=== PATIENT | female | born 1985 | race Caucasian/White ===

== ENCOUNTER 2018-01-21 11:32 | Emergency (ER) | payer MEDICAID, OTHER ==
--- NOTE | 2018-01-21 11:55 | ER Document Report ---
ED Medical Screen (RME) - General Chief Complaint: OB Problem (<20wks) Stated Complaint: ABDOMINAL PAIN,VAGINAL BLEEDING Time Seen by Provider: 01/21/18 11:52 Notes: RAPID MEDICAL EVALUATION DISCLOSURE I have seen this patient as part of a Rapid Medical Evaluation and, if applicable, placed any initially appropriate orders. The patient will be seen and fully evaluated, including a full history and physical exam, by a provider ( in Main ED or Fast Track) when a room becomes available. 32-year-old female here with complaints of right and left pelvic pain ongoing for the past 3 days. Yesterday she started to have some vaginal bleeding described as spotting. She has not had any dysuria hematuria fevers chills. [facility] and had an ultrasound several weeks ago that she reports is normal. TRAVEL OUTSIDE OF THE [place] IN LAST 30 DAYS: No - Related Data Allergies/Adverse Reactions: No Known Allergies Allergy (Verified 01/21/18 11:33) Past Medical History Renal/ Medical History: Reports: Hx Kidney Stones - Immunizations Hx Diphtheria, Pertussis, Tetanus Vaccination: Yes Physical Exam - Vital signs Vitals: Temp Pulse Resp BP Pulse Ox 99.0 F 79 15 123/70 100 01/21/18 11:35 01/21/18 11:35 01/21/18 11:35 01/21/18 11:35 01/21/18 11:35 Course - Vital Signs Vital signs: Temp Pulse Resp BP Pulse Ox 99.0 F 79 15 123/70 100 01/21/18 11:35 01/21/18 11:35 01/21/18 11:35 01/21/18 11:35 01/21/18 11:35 Doctor's Discharge - Discharge Referrals: MEGHAN LOPEZ MD [Primary Care Provider] - Follow up as needed
[2018-01-21 12:39] LABS: AMORPHOUS SEDIMENT,URINE 1+ /HPF; APPEARANCE,URINE TURBID; BILIRUBIN,URINE NEGATIVE (NEGATIVE); COLOR,URINE YELLOW; GLUCOSE, URINE NEGATIVE (NEGATIVE); KETONES,URINE NEGATIVE (NEGATIVE); LEUKOCYTE ESTERASE,URINE TRACE (NEGATIVE); NITRITE,URINE NEGATIVE (NEGATIVE); PROTEIN,URINE NEGATIVE (NEGATIVE); URINE SPECIFIC GRAVITY 1.018
--- NOTE | 2018-01-21 13:50 | ER Document Report ---
ED GI/ - General Chief Complaint: OB Problem (<20wks) Stated Complaint: ABDOMINAL PAIN,VAGINAL BLEEDING Time Seen by Provider: 01/21/18 11:52 Mode of Arrival: Ambulatory Information source: Patient Notes: Chief complaint: Vaginal spotting History of complain:( obtained from----patient) 32 years old female, fourth , 3 live , nearly 9 weeks , presents with vaginal spotting and occasional bleeding since yesterday. Since this she has been having almost continuous cramp which is not new for her. Denies any dizziness denies any nausea vomiting. Onset: As above Duration: Last 24 hours Severity: Mild Quality: Mild Context: Exacerbating factor and relieving factors: Not applicable REVIEW OF SYSTEMS: CONSTITUTIONAL : Denies fever, chills, or sweats. Denies recent illness. EENT: Denies eye, ear, throat, or mouth pain or symptoms. Denies nasal or sinus congestion or discharge. Denies throat, tongue, or mouth swelling or difficulty swallowing. CARDIOVASCULAR: Denies chest pain. Denies palpitations or racing or irregular heart beat. Denies ankle edema. RESPIRATORY: Denies cough, cold, or chest congestion. Denies shortness of breath, difficulty breathing, or wheezing. GASTROINTESTINAL: Denies distention. Denies nausea, vomiting, or diarrhea. Denies blood in vomitus, stools, or per rectum. Denies black, tarry stools. Denies constipation. GENITOURINARY: Denies difficulty urinating, painful urination, burning, frequency, blood in urine, or discharge. FEMALE GENITOURINARY: Denies vaginal bleeding, heavy or abnormal periods, irregular periods. Denies vaginal discharge or odor. MUSCULOSKELETAL: Denies back or neck pain or stiffness. Denies joint pain or swelling. SKIN: Denies rash, lesions or sores. HEMATOLOGIC : Denies easy bruising or bleeding. LYMPHATIC: Denies swollen, enlarged glands. NEUROLOGICAL: Denies confusion or altered mental status. Denies passing out or loss of consciousness. Denies dizziness or lightheadedness. Denies headache. Denies weakness or paralysis or loss of use of either side. Denies problems with gait or speech. Denies sensory loss, numbness, or tingling. Denies seizures. PSYCHIATRIC: Denies anxiety or stress. Denies depression, suicidal ideation, or homicidal ideation. ALL OTHER SYSTEMS REVIEWED AND NEGATIVE. PHYSICAL EXAMINATION: GENERAL: Well-appearing, well-nourished and in no acute distress. HEAD: Atraumatic, normocephalic. EYES: Pupils equal round and reactive to light, extraocular movements intact, conjunctiva are normal. ENT: Nares patent, oropharynx clear without exudates. Moist mucous membranes. NECK: Normal range of motion, supple without lymphadenopathy LUNGS: Breath sounds clear to auscultation bilaterally and equal. No wheezes rales or rhonchi. HEART: Regular rate and rhythm without murmurs ABDOMEN: Soft, nontender, nondistended abdomen. No guarding, no rebound. No masses appreciated. Examination of genitals-deferred Musculoskeletal: Normal range of motion, no pitting or edema. No cyanosis. NEUROLOGICAL: Cranial nerves grossly intact. Normal speech, normal gait. Normal sensory, motor exams PSYCH: Normal mood, normal affect. SKIN: Warm, Dry, normal turgor, no rashes or lesions noted. Dictation was performed using [employer] voice recognition software TRAVEL OUTSIDE OF THE [place] IN LAST 30 DAYS: No - HPI Severity at maximum: Moderate Pain Level: 2 Notes: 01/21/18 13:50 Dictated - Related Data Allergies/Adverse Reactions: No Known Allergies Allergy (Verified 01/21/18 11:33) Past Medical History - General Information source: Patient - Social History Smoking Status: Never Smoker Chew tobacco use (# tins/day): No Frequency of alcohol use: None Drug Abuse: None Family History: Reviewed & Not Pertinent Patient has suicidal ideation: No Patient has homicidal ideation: No Renal/ Medical History: Reports: Hx Kidney Stones. Denies: Hx Peritoneal Dialysis - Immunizations Hx Diphtheria, Pertussis, Tetanus Vaccination: Yes Review of Systems - Review of Systems Notes: Dictated Physical Exam - Vital signs Vitals: Temp Pulse Resp BP Pulse Ox 99.0 F 79 15 123/70 100 01/21/18 11:35 01/21/18 11:35 01/21/18 11:35 01/21/18 11:35 01/21/18 11:35 - Notes Notes: Dictated Course - Re-evaluation Re-evalutation: 01/21/18 17:23 Program was ordered and given - Vital Signs Vital signs: Temp Pulse Resp BP Pulse Ox 99.0 F 79 15 123/70 100 01/21/18 11:35 01/21/18 11:35 01/21/18 11:35 01/21/18 11:35 01/21/18 11:35 - Laboratory Result Diagrams: 01/21/18 12:05 Laboratory results interpreted by me: 01/21/18 01/21/18 01/21/18 12:05 12:05 12:05 Serum HCG, Qual POSITIVE H Beta HCG, Quant 44284.00 H Urine Blood MODERATE H Urine Urobilinogen 2.0 H Ur Leukocyte Esterase TRACE H - Diagnostic Test Radiology reviewed: Reports reviewed - Reported by radiologist as a live intrauterine of 7 weeks and 2 days Discharge - Discharge Clinical Impression: Threatened in early Qualifiers: Weeks of gestation: less than 8 weeks Qualified Code(s): Z3A.01 - Less than 8 weeks gestation of Condition: Fair Disposition: HOME, SELF-CARE Instructions: Bleeding During Early ([facility]), 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
[2018-01-21 14:01] LABS: ABSOLUTE EOSINOPHILS # (AUTO) 0.2 10^3/uL (0.0-0.6); ABSOLUTE LYMPHOCYTES (AUTO) 1.5 10^3/uL (0.5-4.7); ABSOLUTE MONOCYTES (AUTO) 0.5 10^3/uL (0.1-1.4); ABSOLUTE NEUT (AUTO) 3.1 10^3/uL (1.7-8.2); BASOPHILS % (AUTO) 0.6 % (0-2); EOSINOPHILS % (AUTO) 3.5 % (0-6); HEMOGLOBIN 12.8 g/dL (12.0-15.5); LYMPHOCYTES % (AUTO) 29.1 % (13-45); MEAN CORPUSCULAR HEMOGLOBIN 30.9 pg (27.0-33.4); MEAN CORPUSCULAR HGB CONC 33.7 g/dL (32.0-36.0); MEAN CORPUSCULAR VOLUME 92 fl (80-97); MONOCYTES % (AUTO) 9.1 % (3-13); PLATELET COUNT 181 10^3/uL (150-450); RED BLOOD COUNT 4.15 10^6/uL (3.72-5.28); SEGMENTED NEUTROPHILS % (AUTO) 57.7 % (42-78); TOTAL CELLS COUNTED % (AUTO) 100 %; WHITE BLOOD COUNT 5.3 10^3/uL (4.0-10.5)
--- NOTE | 2018-01-21 14:58 | RADIOLOGY REPORT (SQ) ---
EXAM DESCRIPTION: U/S OB TRANSVAGINAL W/O DOP COMPLETED DATE/TIME: 01/21/2018 2:12 pm REASON FOR STUDY: L pelvic pain, vag spotting COMPARISON: None. TECHNIQUE: Transvaginal static and realtime grayscale images acquired of the pelvis. Additional bradford cted spectral and color Doppler images recorded. All images stored on PACs. bHCG: Not available CLINICAL DATES: 9 weeks LIMITATIONS: None. FINDINGS: FETUS: Living intrauterine . ULTRASOUND EGA: 7 weeks 2 days ULTRASOUND BETZAIDA: 09/07/2018 CRL: 11 mm FHR: 150 beats per minute. SUBCHORIONIC BLEED: Yes SIZE OF BLEED: Measures 6.5 x 14.4 x 6.4 mm UTERUS: No masses. No anomalies. CERVICAL LENGTH: 2.2 cm Closed. RIGHT ADNEXA: Normal ovary with normal vascular flow. No adnexal free fluid. Complex appearing cyst is identified measuring 1.7 x 1.8 x 1.3 cm in diameters most consistent with a corpus lutein cyst. LEFT ADNEXA: Normal ovary with normal vascular flow. No adnexal free fluid. No adnexal masses. FREE FLUID: None. OTHER: No other significant finding. IMPRESSION: LIVING INTRAUTERINE . EGA 7 weeks 2 days Trimester of : First - 0 to 13 weeks. TECHNICAL DOCUMENTATION: JOB ID: [id number] [employer]- All Rights Reserved rev-12/13 Reading location - IP/workstation name: [email or web address]
[2018-01-21 17:33] VITALS: BP 113/79
== END 2018-01-21 17:38 | disposition home or self-care (01) ==
LOC: ER 11:32
DX: O20.0 Threatened abortion (principal); Z3A.01 Less than 8 weeks gestation of pregnancy; Z87.442 Personal history of urinary calculi
CPT/HCPCS: 99284; 96372; 86900; 86901; 36415; 86850; 84702; 84703; 85025; 81001; 76817; J2790

== ENCOUNTER 2018-01-23 17:34 | Emergency (ER) | payer SELFPAY ==
--- NOTE | 2018-01-23 18:21 | ER Document Report ---
ED Medical Screen (RME) - General Chief Complaint: Vag Bleeding, +preg <12wks Stated Complaint: VAGINAL BLEEDING Time Seen by Provider: 01/23/18 18:14 Notes: RAPID MEDICAL EVALUATION DISCLOSURE I have seen this patient as part of a Rapid Medical Evaluation and, if applicable, placed any initially appropriate orders. The patient will be seen and fully evaluated, including a full history and physical exam, by a provider ( in Main ED or Fast Track) when a room becomes available. 32-year-old female approximately 7 weeks gestation seen several days ago for abdominal cramping and vaginal bleeding with ultrasound findings of 7 weeks 2 days and 150 bpm back today because of bright red bleeding and abdominal cramping. She states that the bleeding today is bright red instead of the different color of bleeding the other day. Per chart review ultrasound showed intrauterine and she was Rh- so she did receive RhoGam per the providers note. EXAM Minimal suprapubic TTP Alert oriented conversant TRAVEL OUTSIDE OF THE [place] IN LAST 30 DAYS: No - Related Data Allergies/Adverse Reactions: No Known Allergies Allergy (Verified 01/23/18 17:35) Past Medical History Renal/ Medical History: Reports: Hx Kidney Stones. Denies: Hx Peritoneal Dialysis - Immunizations Hx Diphtheria, Pertussis, Tetanus Vaccination: Yes Physical Exam - Vital signs Vitals: Temp Pulse Resp BP Pulse Ox 98.8 F 93 18 131/77 H 99 01/23/18 17:39 01/23/18 17:39 01/23/18 17:39 01/23/18 17:39 01/23/18 17:39 Course - Vital Signs Vital signs: Temp Pulse Resp BP Pulse Ox 98.8 F 93 18 131/77 H 99 01/23/18 17:39 01/23/18 17:39 01/23/18 17:39 01/23/18 17:39 01/23/18 17:39 Doctor's Discharge - Discharge Referrals: MEGHAN LOPEZ MD [Primary Care Provider] - Follow up as needed
[2018-01-23 19:08] LABS: ABSOLUTE EOSINOPHILS # (AUTO) 0.2 10^3/uL (0.0-0.6); ABSOLUTE LYMPHOCYTES (AUTO) 1.8 10^3/uL (0.5-4.7); ABSOLUTE MONOCYTES (AUTO) 0.5 10^3/uL (0.1-1.4); ABSOLUTE NEUT (AUTO) 4.2 10^3/uL (1.7-8.2); BASOPHILS % (AUTO) 0.5 % (0-2); EOSINOPHILS % (AUTO) 3.3 % (0-6); HEMATOCRIT 38.6 % (36.0-47.0); HEMOGLOBIN 13.3 g/dL (12.0-15.5); LYMPHOCYTES % (AUTO) 26.4 % (13-45); MEAN CORPUSCULAR HEMOGLOBIN 31.2 pg (27.0-33.4); MEAN CORPUSCULAR HGB CONC 34.5 g/dL (32.0-36.0); MEAN CORPUSCULAR VOLUME 91 fl (80-97); MONOCYTES % (AUTO) 7.8 % (3-13); PLATELET COUNT 199 10^3/uL (150-450); RED BLOOD COUNT 4.25 10^6/uL (3.72-5.28); RED CELL DISTRIBUTION WIDTH 12.9 % (11.5-14.0); TOTAL CELLS COUNTED % (AUTO) 100 %; WHITE BLOOD COUNT 6.8 10^3/uL (4.0-10.5)
[2018-01-23 19:37] LABS: ANION GAP 13 (5-19); BLOOD UREA NITROGEN 10 mg/dL (7-20); CALCIUM 9.5 mg/dL (8.4-10.2); CARBON DIOXIDE 26 mmol/L (22-30); CHLORIDE 103 mmol/L (98-107); GLUCOSE 91 mg/dL (75-110); POTASSIUM 4.3 mmol/L (3.6-5.0)
--- NOTE | 2018-01-23 19:43 | ER Document Report ---
HPI - HPI Patient complains to provider of: Vaginal bleeding Onset: Other - 3 days Onset/Duration: Worse Quality of pain: Cramping Pain Level: 3 Context: Patient presents complaining of vaginal bleeding for the past 3 days that worsened today. Patient complains of some mild cramping. Patient does report some mild headache pain. Patient is and approximately 7 weeks . Patient was evaluated here 2 days ago for this issue. Associated Symptoms: Headache, Other - Vaginal bleeding. denies: Nausea, Vomiting Exacerbated by: Denies Relieved by: Denies Similar symptoms previously: No Recently seen / treated by doctor: Yes - ROS ROS below otherwise negative: Yes Systems Reviewed and Negative: Yes All other systems reviewed and negative - CONSTITUTIONAL Constitutional: DENIES: Fever - NEURO Neurology: REPORTS: Headache. DENIES: Weakness - RESPIRATORY Respiratory: DENIES: Trouble Breathing, Coughing - GASTROINTESTINAL Gastrointestinal: REPORTS: Abdominal Pain. DENIES: Nausea, Patient vomiting - REPRODUCTIVE Reproductive: REPORTS: :, Abnormal bleeding / discharge - MUSCULOSKELETAL Musculoskeletal: DENIES: Back Pain - DERM Skin Color: Normal, [place] Past Medical History - General Information source: Patient - Social History Smoking Status: Never Smoker Frequency of alcohol use: None Drug Abuse: None Lives with: Family Family History: Reviewed & Not Pertinent Patient has suicidal ideation: No Patient has homicidal ideation: No Renal/ Medical History: Reports: Hx Kidney Stones. Denies: Hx Peritoneal Dialysis Surgical Hx: Negative - Immunizations Hx Diphtheria, Pertussis, Tetanus Vaccination: Yes Vertical Provider Document - CONSTITUTIONAL Agree With Documented VS: Yes Exam Limitations: No Limitations General Appearance: WD/WN, No Apparent Distress - INFECTION CONTROL TRAVEL OUTSIDE OF THE [place] IN LAST 30 DAYS: No - HEENT HEENT: Atraumatic, Normocephalic - NECK Neck: Normal Inspection, Supple - RESPIRATORY Respiratory: Breath Sounds Normal, No Respiratory Distress - CARDIOVASCULAR Cardiovascular: Regular Rate, Regular Rhythm - GI/ABDOMEN Gastrointestinal: Abdomen Soft, Abdomen Non-Tender - REPRODUCTIVE Female Genitalia: Abnormal Inspection - Small amount of vaginal bleeding, cervix closed. negative: CMT, Adnexal Pain-Right, Adnexal Pain-Left - BACK Back: Normal Inspection - MUSCULOSKELETAL/EXTREMETIES Musculoskeletal/Extremeties: MAEW - NEURO Level of Consciousness: Awake, Alert, Appropriate Motor/Sensory: No Motor Deficit - DERM Integumentary: Warm, Dry, No Rash Course - Re-evaluation Re-evalutation: 01/23/18 20:35 Patient with only minimal vaginal bleeding on exam she does have a documented subchorionic bleed. Patient was not told about this finding yesterday. Patient did receive a RhoGam injection yesterday. Cervix is closed, patient with a stable H&H and vital signs. Patient encouraged to follow-up with an OB/ [employer] provider, calling tomorrow for an appointment. - Vital Signs Vital signs: Temp Pulse Resp BP Pulse Ox 98.8 F 93 18 131/77 H 99 01/23/18 17:39 01/23/18 17:39 01/23/18 17:39 01/23/18 17:39 01/23/18 17:39 - Laboratory Result Diagrams: 01/23/18 18:35 01/23/18 18:35 Laboratory results interpreted by me: 01/23/18 20:08 Reviewed lab tests from previous ER visit Labs- Entire Visit 01/23/18 01/23/18 18:35 18:35 WBC 6.8 RBC 4.25 Hgb 13.3 Hct 38.6 MCV 91 MCH 31.2 MCHC 34.5 RDW 12.9 Plt Count 199 Seg Neutrophils % 62.0 Lymphocytes % 26.4 Monocytes % 7.8 Eosinophils % 3.3 Basophils % 0.5 Absolute Neutrophils 4.2 Absolute Lymphocytes 1.8 Absolute Monocytes 0.5 Absolute Eosinophils 0.2 Absolute Basophils 0.0 Sodium 142.0 Potassium 4.3 Chloride 103 Carbon Dioxide 26 Anion Gap 13 BUN 10 Creatinine 0.61 Est GFR ( Amer) > 60 Est GFR (Non-Af Amer) > 60 Glucose 91 Calcium 9.5 Beta HCG, Quant 96507.00 H Total Beta HCG POSITIVE - Diagnostic Test Radiology reviewed: Reports reviewed - Reviewed ultrasound from previous ER visit Discharge - Discharge Clinical Impression: Threatened in early Qualifiers: Weeks of gestation: 9 weeks Qualified Code(s): Z3A.09 - 9 weeks gestation of Subchorionic bleed Qualifiers: Fetus number: single or unspecified fetus Trimester: first trimester Qualified Code(s): O41.8X10 - Other specified disorders of amniotic fluid and membranes, first trimester, not applicable or unspecified Condition: Stable Disposition: HOME, SELF-CARE Instructions: Bleeding During Early ([facility]), Threatened Miscarriage ( [facility]) Additional Instructions: Return immediately for any new or worsening symptoms Followup with your primary care provider, call tomorrow to make a followup appointment Follow-up with an [employer] provider for further evaluation, call tomorrow for an appointment Referrals: MEGHAN LOPEZ MD [NO LOCAL MD] - Follow up as needed [facility] [NO LOCAL MD] - Follow up as needed [facility] [Provider Group] - Follow up tomorrow
[2018-01-23 20:22] LABS: BACTERIA (WET MOUNT) 4+ BACTERIA SEEN; RBCS (WET MOUNT) 4+ RBCS SEEN; T.VAGINALIS (WET MOUNT) NO TRICHOMONAS SEEN; WBCS (WET MOUNT) 1+ WBCS SEEN; YEAST (WET MOUNT) NO YEAST SEEN
[2018-01-23 20:41] VITALS: BP 125/70
[2018-01-23 21:49] LABS: CHLAM PCR NOT DETECTED (NOT DETECT); GON PCR NOT DETECTED (NOT DETECT)
== END 2018-01-23 20:40 | disposition home or self-care (01) ==
LOC: ER 17:34
DX: O20.0 Threatened abortion (principal); O26.891 Other specified pregnancy related conditions, first trimester; R51 Headache; R10.9 Unspecified abdominal pain; Z3A.09 9 weeks gestation of pregnancy
CPT/HCPCS: 36415; 80048; 84702; 85025; 87210; 87491; 87591; 99284

== ENCOUNTER 2018-01-31 19:32 | Emergency (ER) | payer SELFPAY ==
--- NOTE | 2018-01-31 19:57 | ER Document Report ---
ED Medical Screen (RME) - General Chief Complaint: Vaginal Bleeding Stated Complaint: VAGINAL BLEEDING Time Seen by Provider: 01/31/18 19:55 Notes: RAPID MEDICAL EVALUATION DISCLOSURE I have seen this patient as part of a Rapid Medical Evaluation and, if applicable, placed any initially appropriate orders. The patient will be seen and fully evaluated, including a full history and physical exam, by a provider ( in Main ED or Fast Track) when a room becomes available. 32-year-old female approximately 8 weeks gestation here with complaints of passing tissue and some vaginal bleeding that started 50 minutes ago. She does not have any abdominal pain or other symptoms. She has brought the tissue with her in a Tupperware container. Believes she is having a miscarriage. EXAM Tupperware container containing what appears to be previously implanted TRAVEL OUTSIDE OF THE [place] IN LAST 30 DAYS: No - Related Data Allergies/Adverse Reactions: No Known Allergies Allergy (Verified 01/23/18 17:35) Past Medical History Renal/ Medical History: Reports: Hx Kidney Stones. Denies: Hx Peritoneal Dialysis - Immunizations Hx Diphtheria, Pertussis, Tetanus Vaccination: Yes Physical Exam - Vital signs Vitals: Temp Pulse Resp BP Pulse Ox 98.4 F 67 14 126/84 H 100 01/31/18 19:52 01/31/18 19:52 01/31/18 19:52 01/31/18 19:52 01/31/18 19:52 Course - Vital Signs Vital signs: Temp Pulse Resp BP Pulse Ox 98.4 F 67 14 126/84 H 100 01/31/18 19:52 01/31/18 19:52 01/31/18 19:52 01/31/18 19:52 01/31/18 19:52
--- NOTE | 2018-01-31 21:03 | ER Document Report ---
ED General - General Chief Complaint: Vaginal Bleeding Stated Complaint: VAGINAL BLEEDING Time Seen by Provider: 01/31/18 19:55 Mode of Arrival: Ambulatory Information source: Patient Notes: 32-year-old female 4 para 3 presents with concerns of miscarriage. Patient notes that approximately 30 minutes prior to arrival she passed a large clot that she believes is embryo Patient denies any significant pain, denies any significant bleeding TRAVEL OUTSIDE OF THE [place] IN LAST 30 DAYS: No - HPI Onset: Just prior to arrival Onset/Duration: Sudden Quality of pain: Cramping Severity: Mild Pain Level: 1 Associated symptoms: Other Exacerbated by: Denies Relieved by: Denies Similar symptoms previously: Yes Recently seen / treated by doctor: Yes - Related Data Allergies/Adverse Reactions: No Known Allergies Allergy (Verified 01/31/18 21:11) Past Medical History - Social History Smoking Status: Never Smoker Cigarette use (# per day): No Chew tobacco use (# tins/day): No Smoking Education Provided: No Family History: Reviewed & Not Pertinent Patient has suicidal ideation: No Patient has homicidal ideation: No Renal/ Medical History: Reports: Hx Kidney Stones. Denies: Hx Peritoneal Dialysis - Immunizations Hx Diphtheria, Pertussis, Tetanus Vaccination: Yes Review of Systems - Review of Systems Notes: REVIEW OF SYSTEMS: CONSTITUTIONAL : Denies fever, chills, or sweats. Denies recent illness. EENT: Denies eye, ear, throat, or mouth pain or symptoms. Denies nasal or sinus congestion or discharge. Denies throat, tongue, or mouth swelling or difficulty swallowing. CARDIOVASCULAR: Denies chest pain. Denies palpitations or racing or irregular heart beat. Denies ankle edema. RESPIRATORY: Denies cough, cold, or chest congestion. Denies shortness of breath, difficulty breathing, or wheezing. GASTROINTESTINAL: Denies abdominal pain or distention. Denies nausea, vomiting , or diarrhea. Denies blood in vomitus, stools, or per rectum. Denies black, tarry stools. Denies constipation. GENITOURINARY: Denies difficulty urinating, painful urination, burning, frequency, blood in urine, or discharge. FEMALE GENITOURINARY: Massive vaginal bleeding MUSCULOSKELETAL: Denies back or neck pain or stiffness. Denies joint pain or swelling. SKIN: Denies rash, lesions or sores. HEMATOLOGIC : Denies easy bruising or bleeding. LYMPHATIC: Denies swollen, enlarged glands. NEUROLOGICAL: Denies confusion or altered mental status. Denies passing out or loss of consciousness. Denies dizziness or lightheadedness. Denies headache. Denies weakness or paralysis or loss of use of either side. Denies problems with gait or speech. Denies sensory loss, numbness, or tingling. Denies seizures. PSYCHIATRIC: Denies anxiety or stress. Denies depression, suicidal ideation, or homicidal ideation. ALL OTHER SYSTEMS REVIEWED AND NEGATIVE. PHYSICAL EXAMINATION: GENERAL: Well-appearing, well-nourished and in no acute distress. HEAD: Atraumatic, normocephalic. EYES: Pupils equal round and reactive to light, extraocular movements intact, conjunctiva are normal. ENT: Nares patent, oropharynx clear without exudates. Moist mucous membranes. NECK: Normal range of motion, supple without lymphadenopathy LUNGS: Breath sounds clear to auscultation bilaterally and equal. No wheezes rales or rhonchi. HEART: Regular rate and rhythm without murmurs ABDOMEN: Soft, nontender, nondistended abdomen. No guarding, no rebound. No masses appreciated. Female : deferred Musculoskeletal: Normal range of motion, no pitting or edema. No cyanosis. NEUROLOGICAL: Cranial nerves grossly intact. Normal speech, normal gait. Normal sensory, motor exams PSYCH: Normal mood, normal affect. SKIN: Warm, Dry, normal turgor, no rashes or lesions noted. Dictation was performed using [employer] voice recognition software Physical Exam - Vital signs Vitals: Temp Pulse Resp BP Pulse Ox 98.4 F 67 14 126/84 H 100 01/31/18 19:52 01/31/18 19:52 01/31/18 19:52 01/31/18 19:52 01/31/18 19:52 Course - Re-evaluation Re-evalutation: 01/31/18 21:02 What appears to be a [facility] the products of conception will be sent to the lab, hCG quant has dropped significantly, patient is having a miscarriage, she will be washed in the emergency department to make sure that her bleeding is not significant otherwise she is well- appearing asymptomatic 01/31/18 21:52 Patient instructed to return immediately if there are any other complaints - Vital Signs Vital signs: Temp Pulse Resp BP Pulse Ox 98.8 F 60 20 117/77 99 01/31/18 21:45 01/31/18 21:45 01/31/18 21:45 01/31/18 21:45 01/31/18 21:45 - Laboratory Laboratory results interpreted by me: 01/31/18 20:06 Beta HCG, Quant 2299.80 H Discharge - Discharge Clinical Impression: Miscarriage Condition: Stable Disposition: HOME, SELF-CARE Instructions: Miscarriage ([facility]) Additional Instructions: Return immediately if there are any other concerns
[2018-01-31 21:49] VITALS: BP 117/77
== END 2018-01-31 21:50 | disposition home or self-care (01) ==
LOC: ER 19:32
DX: O03.9 Complete or unspecified spontaneous abortion without complication (principal)
CPT/HCPCS: 36415; 84702; 88305; 99284

== ENCOUNTER 2018-06-25 08:09 | Emergency (ER) | payer OTHER ==
[2018-06-25 08:22] VITALS: BP 122/79
[2018-06-25] MEDS ORDERED: LIDOCAINE 5% (700 MG) TRANSDERMAL ADH..PATCH TP ONE (09:35)
[2018-06-25] MEDS ORDERED: PREDNISONE 20 MG TABLET PO ONE (09:35)
[2018-06-25] MEDS ORDERED: OXYCODONE-ACETAMINOPHEN 5-325 MG TABLET PO ONE (09:35)
--- NOTE | 2018-06-25 09:38 | ER Document Report ---
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 Patient denies any fever. Patient states that occasionally she will have pain that radiates into the posterior aspect of her left lower extremity although this is currently resolved at this time. Patient denies any fever or history of IV drug use. Patient denies any urinary retention or incontinence. Associated Symptoms: Other - Low back pain. denies: Fever, Vomiting Exacerbated by: Movement Relieved by: Denies Similar symptoms previously: Yes Recently seen / treated by doctor: No - ROS ROS below otherwise negative: Yes Systems Reviewed and Negative: Yes All other systems reviewed and negative - CONSTITUTIONAL Constitutional: DENIES: Fever, Chills - NEURO Neurology: DENIES: Headache, Weakness - URINARY Urinary: DENIES: Dysuria, Urgency, Frequency - REPRODUCTIVE Reproductive: DENIES: : - MUSCULOSKELETAL Musculoskeletal: REPORTS: Extremity pain - intermittent left lower extrem, Back Pain - DERM Skin Color: Normal Skin Problems: None Past Medical History - General Information source: Patient - Social History Smoking Status: Never Smoker Chew tobacco use (# tins/day): No Frequency of alcohol use: Occasional Drug Abuse: None 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 Denies: Hx Peritoneal Dialysis Surgical Hx: Negative - Immunizations Hx Diphtheria, Pertussis, Tetanus Vaccination: Yes Vertical Provider Document - CONSTITUTIONAL Agree With Documented VS: Yes Exam Limitations: No Limitations General Appearance: WD/WN, No Apparent Distress Notes: PHYSICAL EXAMINATION: GENERAL: Well-appearing, well-nourished and in no acute distress. HEAD: Atraumatic, normocephalic. EYES: sclera clear, anicteric, conjunctiva are normal. ENT: nares patent, Moist mucous membranes. NECK: Normal range of motion, supple no lymphadenopathy LUNGS: respirations unlabored HEART: Regular rate and rhythm without murmurs EXTREMITIES: Normal range of motion, no pitting or edema. No cyanosis. Gait normal, pt ambulates without difficulty BACK: Lower lumbar midline tenderness, no deformities or step-offs. No CVA tenderness. NEUROLOGICAL: Cranial nerves grossly intact. Normal speech, normal gait. No saddle anesthesia. Negative straight leg test bilaterally PSYCH: Normal mood, normal affect. SKIN: Warm, Dry, normal turgor, no rashes or lesions noted. - INFECTION CONTROL TRAVEL OUTSIDE OF THE [place] IN LAST 30 DAYS: No Course - Re-evaluation Re-evalutation: 06/25/18 The patient presents with low back pain without signs of spinal cord compression , cauda equina syndrome, infection, aneurysm, or other serious etiology. The patient is neurologically intact. Given the extremely risk of these diagnoses further testing and evaluation for these possibilities does not appear to be indicated at this time. Patient has been instructed to return if the symptoms worsen or change in any way. - Vital Signs Vital signs: Temp Pulse Resp BP Pulse Ox 97.7 F 75 18 122/79 97 06/25/18 08:20 06/25/18 08:20 06/25/18 08:20 06/25/18 08:20 06/25/18 08:20 Discharge - Discharge Clinical Impression: Low back pain Qualifiers: Chronicity: acute Back pain laterality: midline Sciatica presence: with sciatica Sciatica laterality: sciatica of left side Qualified Code(s): M54.42 - Lumbago with sciatica, left side Condition: Stable Disposition: HOME, SELF-CARE Instructions: Ice Packs ([facility]), Low Back Pain ([facility]), Oral Narcotic Medication ( [facility]), Sciatica ([facility]), Steroid Medication Additional Instructions: Return immediately for any new or worsening symptoms Followup with your primary care provider, call tomorrow to make a followup appointment Prescriptions: Oxycodone HCl/Acetaminophen [Percocet 5-325 mg Tablet] 1 tab PO ASDIR PRN #15 tablet PRN Reason: Prednisone [Deltasone 20 mg Tablet] 3 tab PO DAILY 4 Days tablet Forms: Restricted Release, Return to Work Referrals: [facility] [Provider Group] - Follow up as needed
== END 2018-06-25 09:50 | disposition home or self-care (01) ==
LOC: ER 08:09
DX: M54.42 Lumbago with sciatica, left side (principal); X50.1XXA Overexertion from prolonged static or awkward postures, initial encounter; Y93.89 Activity, other specified; Y99.0 Civilian activity done for income or pay
CPT/HCPCS: 99283; J7512

== ENCOUNTER → 2019-08-18 | Outpatient (CLI) | payer SELFPAY ==
--- NOTE | 2019-08-18 13:55 | RADIOLOGY REPORT (SQ) ---
EXAM DESCRIPTION: U/S [id number] TRNABD 1GES W/ODOP COMPLETED DATE/TIME: 08/18/2019 9:43 am REASON FOR STUDY: Z34.81 ENCOUNTER FOR SUPRVSN OF NORMAL , FIRST TRIMESTER Z34.81 ENCOUNTE R FOR SUPRVSN OF NORMAL , FIRST TRIM COMPARISON: None. TECHNIQUE: Transabdominal static and realtime grayscale images acquired of the pelvis. Additional se lected spectral and color Doppler images recorded. All images stored on PACs. bHCG: Not applicable. CLINICAL DATES: 10 week 6 day. LIMITATIONS: None. FINDINGS: FETUS: Single Living intrauterine . ULTRASOUND EGA: 11 week 1 day. ULTRASOUND BETZAIDA: 03/07/2020. EFW: Not applicable less than 20 weeks. CRL: 4.32 cm. FHR: 168 beats per minute. SURVEY: No visualized anomalies. AMNIOTIC FLUID: Adequate amount. PLACENTA: Not yet developed due to early gestation. SUBCHORIONIC BLEED: No. SIZE OF BLEED: Not applicable. UTERUS: No masses. No anomalies. CERVICAL LENGTH: 2.9 cm. Closed. RIGHT ADNEXA: Normal ovary with normal vascular flow. No adnexal free fluid. No adnexal masses. LEFT ADNEXA: Normal ovary with normal vascular flow. No adnexal free fluid. Complex cyst measuring 2.3 cm. FREE FLUID: None. OTHER: No other significant finding. IMPRESSION: LIVING INTRAUTERINE . EGA 11 WEEK 1 DAY. Trimester of : First trimester - 0 to 13 weeks. TECHNICAL DOCUMENTATION: JOB ID: [id number] [employer]- All Rights Reserved rev Reading location - IP/workstation name: [email or web address]
== END ==
LOC: RAD 09:17
PROVIDERS: ATTEND Nurse Practitioner Family
DX: Z34.81 Encounter for supervision of other normal pregnancy, first trimester (principal)
CPT/HCPCS: 76801

== ENCOUNTER 2019-11-08 14:30 | Outpatient (CLI) | payer MEDICAID ==
[2019-11-08 15:17] LABS: AMORPHOUS SEDIMENT,URINE TRACE /HPF; APPEARANCE,URINE TURBID; BILIRUBIN,URINE NEGATIVE (NEGATIVE); COLOR,URINE YELLOW; GLUCOSE, URINE NEGATIVE (NEGATIVE); KETONES,URINE NEGATIVE (NEGATIVE); LEUKOCYTE ESTERASE,URINE NEGATIVE (NEGATIVE); NITRITE,URINE NEGATIVE (NEGATIVE); PROTEIN,URINE 30 mg/dL (NEGATIVE); URINE SPECIFIC GRAVITY 1.011; UROBILINOGEN,URINE NEGATIVE mg/dL (<2.0)
[2019-11-08 15:30] LABS: URINE AMPHETAMINES SCREEN NEGATIVE; URINE BARBITURATES SCREEN NEGATIVE; URINE BENZODIAZEPINES SCREEN NEGATIVE; URINE COCAINE SCREEN NEGATIVE; URINE MARIJUANA (THC) SCREEN NEGATIVE; URINE METHADONE SCREEN NEGATIVE; URINE PHENCYCLIDINE SCREEN NEGATIVE
--- NOTE | 2019-11-08 15:41 | RADIOLOGY REPORT (SQ) ---
EXAM DESCRIPTION: U/S OB LIMITED IMAGES COMPLETED DATE/TIME: 11/08/2019 3:32 pm REASON FOR STUDY: cervical length COMPARISON: 08/18/2019 TECHNIQUE: Limited transabdominal grayscale ultrasound for evaluation of specific requested obstetri aleena parameters. LIMITATIONS: None. FINDINGS: CERVICAL LENGTH: 3.1 cm Closed. ADRIAN: 13.0 cm. FHR: 155 beats per minute. PRESENTATION: Cephalic. PLACENTA: Posterior ANATOMY: Not assessed OTHER: Estimated gestational age 23 weeks 1 days IMPRESSION: LIMITED OBSTETRICAL ULTRASOUND WITH MEASURED PARAMETERS DELINEATED ABOVE. Trimester of : Second trimester - 13 weeks 1 day to 27 weeks 6 days. TECHNICAL DOCUMENTATION: JOB ID: [id number] 2010 [employer]- All Rights Reserved Reading location - IP/workstation name: [email or web address]
--- NOTE | 2019-11-08 15:43 | RADIOLOGY REPORT (SQ) ---
EXAM DESCRIPTION: U/S RETROPERITON (RENAL/AORTA) IMAGES COMPLETED DATE/TIME: 11/08/2019 3:32 pm REASON FOR STUDY: kidney dialation vs stone COMPARISON: None. TECHNIQUE: Dynamic and static grayscale images acquired of the kidneys and bladder and recorded on P ACS. Additional selected color Doppler and spectral images recorded. LIMITATIONS: None. FINDINGS: RIGHT KIDNEY: Normal size. Normal echogenicity. No solid or suspicious masses. Keny[place] l pelvis dilated 2.4 cm. Above expected range. No calcifications. LEFT KIDNEY: Normal size. Normal echogenicity. No solid or suspicious masses. Renal pelvis dil ated 1 cm. Above expected range. No calcifications. BLADDER: No masses. OTHER FINDINGS: No other significant finding. IMPRESSION: Both right and left kidney renal pelves are dilated greater than expected for degree of gestation. COMMENT: The degree of renal pelvocalyceal dilation is correlated with the patient's current stage o f . TECHNICAL DOCUMENTATION: JOB ID: [id number] 2010 [employer]- All Rights Reserved Reading location - IP/workstation name: [email or web address]
[2019-11-08] MEDS ORDERED: ACETAMINOPHEN 325 MG TABLET PO ONE (15:53)
[2019-11-08] MEDS ORDERED: NITROFURANTOIN MONOHYD/M-CRYST 100 MG CAPSULE PO ONE (15:53)
[2019-11-08] MEDS ORDERED: ACETAMINOPHEN 325 MG TABLET ONE (16:00)
[2019-11-08] MEDS ORDERED: NITROFURANTOIN MONOHYD/M-CRYST 100 MG CAPSULE ONE (16:00)
[2019-11-09] MEDS ORDERED: NITROFURANTOIN MONOHYD/M-CRYST 100 MG CAPSULE PO SCH (10:00)
== END 2019-11-08 16:08 | disposition home or self-care (01) ==
LOC: LC 14:30
PROVIDERS: ATTEND Obstetrics & Gynecology
DX: O47.02 False labor before 37 completed weeks of gestation, second trimester (principal); N28.89 Other specified disorders of kidney and ureter; Z3A.23 23 weeks gestation of pregnancy
CPT/HCPCS: 59899; 81001; 80307; 76770; 76815; J3490 ×2; 87086; J8499

== ENCOUNTER 2019-11-11 21:30 | Emergency (ER) | payer MEDICAID ==
--- NOTE | 2019-11-11 21:41 | ER Document Report ---
ED Medical Screen (RME) - General Stated Complaint: BACK PAIN Notes: Patient is a 34-year-old white female with a current gestation of approximately 23 weeks who presents to the emergency department the chief complaint of right lower back pain. She was seen here 3 days ago for the same. States that she had what she describes as a normal renal ultrasound and a normal gravid uterus ultrasound. States she was diagnosed with a UTI started on medicines and sent home. She states the pain has not improved but has not worsened. She states she can no longer tolerate it so she came for evaluation. Denies any abdominal cramping or pain. Denies any vaginal bleeding or discharge. I have treated and performed a rapid initial assessment of this patient. A comprehensive ED assessment and evaluation of the patient, analysis of test results and completion of medical decision making process will be conducted by additional ED providers. PHYSICAL EXAMINATION: GENERAL: Well-appearing, well-nourished and in no acute distress. A&Ox4. Answers questions appropriately. TRAVEL OUTSIDE OF THE [place] IN LAST 30 DAYS: No - Related Data Allergies/Adverse Reactions: No Known Allergies Allergy (Verified 11/08/19 14:43) Past Medical History Renal/ Medical History: Reports: Hx Kidney Stones. Denies: Hx Peritoneal Dialysis - Immunizations Hx Diphtheria, Pertussis, Tetanus Vaccination: Yes Physical Exam - Vital signs Vitals: Temp Pulse Resp BP Pulse Ox 97.5 F 76 16 128/82 H 100 11/11/19 21:34 11/11/19 21:34 11/11/19 21:34 11/11/19 21:34 11/11/19 21:34 Course - Vital Signs Vital signs: Temp Pulse Resp BP Pulse Ox 97.5 F 76 16 128/82 H 100 11/11/19 21:34 11/11/19 21:34 11/11/19 21:34 11/11/19 21:34 11/11/19 21:34
[2019-11-11 22:11] LABS: ABSOLUTE EOSINOPHILS # (AUTO) 0.1 10^3/uL (0.0-0.6); ABSOLUTE LYMPHOCYTES (AUTO) 1.5 10^3/uL (0.5-4.7); ABSOLUTE MONOCYTES (AUTO) 0.8 10^3/uL (0.1-1.4); ABSOLUTE NEUT (AUTO) 10.3 10^3/uL (1.7-8.2); BASOPHILS % (AUTO) 0.2 % (0-2); EOSINOPHILS % (AUTO) 0.9 % (0-6); HEMATOCRIT 37.4 % (36.0-47.0); HEMOGLOBIN 12.9 g/dL (12.0-15.5); LYMPHOCYTES % (AUTO) 11.7 % (13-45); MEAN CORPUSCULAR HEMOGLOBIN 32.1 pg (27.0-33.4); MEAN CORPUSCULAR HGB CONC 34.7 g/dL (32.0-36.0); MEAN CORPUSCULAR VOLUME 93 fl (80-97); MONOCYTES % (AUTO) 6.2 % (3-13); PLATELET COUNT 178 10^3/uL (150-450); RED BLOOD COUNT 4.03 10^6/uL (3.72-5.28); RED CELL DISTRIBUTION WIDTH 13.6 % (11.5-14.0); TOTAL CELLS COUNTED % (AUTO) 100 %; WHITE BLOOD COUNT 12.7 10^3/uL (4.0-10.5)
[2019-11-11 22:14] LABS: APPEARANCE,URINE SLIGHTLY-CLOUDY; BILIRUBIN,URINE NEGATIVE (NEGATIVE); COLOR,URINE YELLOW; GLUCOSE, URINE NEGATIVE (NEGATIVE); KETONES,URINE 80 mg/dL (NEGATIVE); PROTEIN,URINE NEGATIVE (NEGATIVE); UROBILINOGEN,URINE NEGATIVE mg/dL (<2.0)
[2019-11-11 22:24] LABS: ALBUMIN 3.9 g/dL (3.5-5.0); ALKALINE PHOSPHATASE 65 U/L (38-126); ANION GAP 9 (5-19); ASPARTATE AMINO TRANSFERASE 30 U/L (14-36); BILIRUBIN,TOTAL 0.3 mg/dL (0.2-1.3); BLOOD UREA NITROGEN 12 mg/dL (7-20); CALCIUM 9.5 mg/dL (8.4-10.2); CARBON DIOXIDE 24 mmol/L (22-30); CHLORIDE 103 mmol/L (98-107); GLUCOSE 101 mg/dL (75-110); POTASSIUM 3.9 mmol/L (3.6-5.0); TOTAL PROTEIN 7.1 g/dL (6.3-8.2)
--- NOTE | 2019-11-12 00:26 | ER Document Report ---
ED General - General Chief Complaint: Flank Pain Stated Complaint: BACK PAIN Time Seen by Provider: 11/12/19 00:22 Primary Care Provider: TAE JON MD [Primary Care Provider] - Follow up as needed Notes: This 34-year-old woman 5 para 4 AB 1, presents to the emergency department with history of 24-week intrauterine , complains of right sided flank pain. She was seen in the hospital last week, diagnosed with UTI, is taking Macrobid. States that this afternoon she had a sudden onset of right- sided flank pain. Renal ultrasound was performed during her last hospital visit which showed some dilatation of the renal calyces bilaterally. Patient notes that she has had a history of kidney stones in the past, however, denies nausea, vomiting or excruciating uncontrollable pain. She took 650 mg of Tylenol at approximately 6 PM states that the pain has improved somewhat. She has a scheduled KEY RINGER appointment in 1 month. She denies fever, chills, dysuria or hematuria. She also denies cramping abdominal pain or vaginal bleeding. TRAVEL OUTSIDE OF THE [place] IN LAST 30 DAYS: No - Related Data Allergies/Adverse Reactions: No Known Allergies Allergy (Verified 11/08/19 14:43) Home Medications: macrodantin. vit Past Medical History - Social History Smoking Status: Never Smoker Family History: Reviewed & Not Pertinent Patient has suicidal ideation: No Patient has homicidal ideation: No Renal/ Medical History: Reports: Hx Kidney Stones. Denies: Hx Peritoneal Dialysis - Immunizations Hx Diphtheria, Pertussis, Tetanus Vaccination: Yes Review of Systems - Review of Systems Notes: Constitutional: Negative for fever. HENT: Negative for sore throat. Eyes: Negative for visual changes. Cardiovascular: Negative for chest pain. Respiratory: Negative for shortness of breath. Gastrointestinal: Negative for abdominal pain, vomiting or diarrhea. Genitourinary: Negative for dysuria. Musculoskeletal: + Back pain. Skin: Negative for rash. Neurological: Negative for headaches, weakness or numbness. 10 point ROS negative except as marked above and in HPI. Physical Exam - Vital signs Vitals: Temp Pulse Resp BP Pulse Ox 97.5 F 76 16 128/82 H 100 11/11/19 21:34 11/11/19 21:34 11/11/19 21:34 11/11/19 21:34 11/11/19 21:34 - Notes Notes: PHYSICAL EXAMINATION: Physical Exam: General: Well-nourished well-developed 34-year-old woman in no acute distress HEENT: NC/AT, pupils equal round and reactive to light, MM moist,nares clear, oropharynx clear, airway patent Neck: supple, no adenopathy, no masses. Good range of motion Lungs: clear, no wheezing, no rales no rhonchi CVS: Regular rate and rhythm no murmur gallop or rub Abdomen: Gravid, soft, active, nontender, no masses, no hepatosplenomegaly Ext: No edema, clubbing or cyanosis. Neuro: Alert and responsive, moving all 4 extremities on command, cranial nerves intact, no focal findings Skin: Intact no open lesions, no rash PSYCH: Normal mood, normal affect. Course - Re-evaluation Re-evalutation: 11/12/19 00:41 Patient is doing better, pain is decreased, she is given Tylenol 975 mg in the emergency department and encouraged to call her KEY RINGER regarding her symptoms and follow-up. The patient is in agreement with this plan and will be dis charged home. - Vital Signs Vital signs: Temp Pulse Resp BP Pulse Ox 97.5 F 76 16 128/82 H 100 11/11/19 21:34 11/11/19 21:34 11/11/19 21:34 11/11/19 21:34 11/11/19 21:34 - Laboratory Result Diagrams: 11/11/19 21:51 11/11/19 21:51 Laboratory results interpreted by me: 11/11/19 11/11/19 11/11/19 21:51 21:51 21:51 WBC 12.7 H Lymph % (Auto) 11.7 L Absolute Neuts (auto) 10.3 H Seg Neutrophils % 81.0 H Sodium 135.7 L Beta HCG, Quant 6171.00 H Urine Ketones 80 H Leukocyte Esterase Rfl SMALL H 11/12/19 00:41 I have reviewed laboratory data and used this information for the treatment decisions regarding the patient. Discharge - Discharge Clinical Impression: Right flank pain, Second trimester Condition: Good Disposition: HOME, SELF-CARE Additional Instructions: You were seen in the emergency department tonight with back pain in the second trimester . You may use Tylenol every 4-6 hours as needed for pain, cold compress to the area of pain, warm tub baths may be useful. Please contact your KEY RINGER regarding a follow-up appointment of the symptoms if needed. Please complete the antibiotics as previously prescribed. If your symptoms are wo rsening or if you develop fever, nausea and vomiting, unable to keep your medications down you may return to the emergency department for further evaluation and treatment. HOME CARE INSTRUCTIONS & INFORMATION: Thank you for choosing us for your medical needs. We hope you're satisfied with the care you received. After you leave, you must properly care for your problem and, at the same time, observe its progress. Any condition can change. Some illnesses can change rapidly over hours or days. If your condition worsens, return to the Emergency Department or see your physician promptly. ABOUT YOUR X-RAYS AND EKG'S: If you had an EKG or X-rays taken, they have been read by the Emergency Physician. The X-rays and EKG's will also be read by a Radiologist or [employer] Consultant within 24 hours. If discrepancies are noted, you will be notified by telephone. Please be certain the ED has a correct telephone number & address where you can be reached. Also, realize that some fractures or abnormalities do not show up on initial X-rays. If your symptoms continue, see your physician. ABOUT YOUR LABORATORY TEST: If you had laboratory tests, the results have been reviewed by the Emergency Physician. Some test results (for example cultures) may not be available for several days. You will be contacted if any test result shows you need additional treatment. Please be certain the ED has a correct telephone number and address where you can be reached. ABOUT YOUR MEDICATIONS: You will receive instructions on how to take your medicine on the prescription label you receive. Additional information may be provided by the Pharmacy. If you have questions afterwards, call the ED for clarification or further instructions. Some prescribed medications may cause drowsiness. Do not perform tasks such as driving a car or operating machinery without consulting your Pharmacist. If you feel you need a refill of pain medication, your condition will need re-evaluation. Please do not call for a refill of any medication. ABOUT YOUR SIGNATURE: Signature of this document acknowledges to followin. Understanding that you received emergency treatment and that you may be released before al medical problems are known or treated. Please be certain the ED has a correct phone number & address where you can be reached. 2. Acknowledgement that you will arrange for follow-up care as recommended. 3. Authorization for the Emergency Physician to provide information to your follow-up Physician in order to maximize your care. AT ANY TIME, IF YOUR SYMPTOMS CHANGE SIGNIFICANTLY OR WORSEN OR YOU DEVELOP NEW SYMPTOMS, RETURN TO THE EMERGENCY DEPARTMENT IMMEDIATELY FOR RE-EVALUATION. OUR GOAL IS TO PROVIDE EXCELLENT MEDICAL CARE! WE HOPE THAT WE HAVE MET YOUR EXPECTATIONS DURING YOUR EMERGENCY DEPARTMENT VISIT AND THAT YOU FEEL YOU HAVE RECEIVED EXCELLENT CARE! Referrals: TAE JON MD [Primary Care Provider] - Follow up as needed
[2019-11-12] MEDS ORDERED: ACETAMINOPHEN 325 MG TABLET PO ONE (00:47)
[2019-11-12 01:09] VITALS: BP 125/71
== END 2019-11-12 01:09 | disposition home or self-care (01) ==
LOC: ER 21:30
DX: O26.892 Other specified pregnancy related conditions, second trimester (principal); R10.9 Unspecified abdominal pain; M54.9 Dorsalgia, unspecified; Z3A.24 24 weeks gestation of pregnancy; Z87.442 Personal history of urinary calculi; Z79.899 Other long term (current) drug therapy
CPT/HCPCS: 99284; 36415; 84702; 83690; 85025; 80053; 81001; J3490

== ENCOUNTER 2020-01-31 19:08 | Observation (INO) | payer MEDICAID ==
[2020-01-31] MEDS ORDERED: CEFTRIAXONE 1 GM/D5W RTU 1 GM/50 ML RTUPB IV ONE (19:25)
[2020-01-31] MEDS ORDERED: RINGERS SOLUTION,LACTATED 1,000 ML IV PRN (19:26)
[2020-01-31] MEDS ORDERED: RINGERS SOLUTION,LACTATED 1,000 ML IV ONE (19:26)
[2020-01-31] MEDS ORDERED: CEFTRIAXONE INJ 1000 MG VIAL ONE (19:44)
[2020-01-31 20:03] LABS: ABSOLUTE LYMPHOCYTES (AUTO) 1.2 10^3/uL (0.5-4.7); ABSOLUTE MONOCYTES (AUTO) 0.7 10^3/uL (0.1-1.4); BASOPHILS % (AUTO) 0.1 % (0-2); EOSINOPHILS % (AUTO) 0.5 % (0-6); HEMATOCRIT 33.8 % (36.0-47.0); HEMOGLOBIN 11.4 g/dL (12.0-15.5); LYMPHOCYTES % (AUTO) 13.2 % (13-45); MEAN CORPUSCULAR HEMOGLOBIN 30.4 pg (27.0-33.4); MEAN CORPUSCULAR HGB CONC 33.8 g/dL (32.0-36.0); MEAN CORPUSCULAR VOLUME 90 fl (80-97); MONOCYTES % (AUTO) 7.7 % (3-13); PLATELET COUNT 103 10^3/uL (150-450); RED BLOOD COUNT 3.75 10^6/uL (3.72-5.28); RED CELL DISTRIBUTION WIDTH 13.9 % (11.5-14.0); SEGMENTED NEUTROPHILS % (AUTO) 78.5 % (42-78); TOTAL CELLS COUNTED % (AUTO) 100 %; WHITE BLOOD COUNT 8.9 10^3/uL (4.0-10.5)
[2020-01-31 20:11] LABS: APPEARANCE,URINE SLIGHTLY-CLOUDY; BILIRUBIN,URINE NEGATIVE (NEGATIVE); CALCIUM OXALATE CRYSTALS,URINE MANY /HPF; COLOR,URINE YELLOW; GLUCOSE, URINE NEGATIVE (NEGATIVE); KETONES,URINE 80 mg/dL (NEGATIVE); LEUKOCYTE ESTERASE,URINE NEGATIVE (NEGATIVE); NITRITE,URINE NEGATIVE (NEGATIVE); PROTEIN,URINE NEGATIVE (NEGATIVE); URINE SPECIFIC GRAVITY 1.023; UROBILINOGEN,URINE NEGATIVE mg/dL (<2.0)
[2020-01-31 20:20] LABS: ALBUMIN 3.4 g/dL (3.5-5.0); ALKALINE PHOSPHATASE 100 U/L (38-126); AMYLASE 55 U/L (30-110); ANION GAP 8 (5-19); ASPARTATE AMINO TRANSFERASE 29 U/L (14-36); BILIRUBIN,TOTAL 0.4 mg/dL (0.2-1.3); BLOOD UREA NITROGEN 11 mg/dL (7-20); CALCIUM 8.9 mg/dL (8.4-10.2); CARBON DIOXIDE 22 mmol/L (22-30); CHLORIDE 106 mmol/L (98-107); GLUCOSE 94 mg/dL (75-110); POTASSIUM 3.4 mmol/L (3.6-5.0); TOTAL PROTEIN 6.5 g/dL (6.3-8.2)
[2020-01-31 20:30] LABS: URINE AMPHETAMINES SCREEN NEGATIVE; URINE BARBITURATES SCREEN NEGATIVE; URINE BENZODIAZEPINES SCREEN NEGATIVE; URINE COCAINE SCREEN NEGATIVE; URINE MARIJUANA (THC) SCREEN NEGATIVE; URINE METHADONE SCREEN NEGATIVE; URINE PHENCYCLIDINE SCREEN NEGATIVE
--- NOTE | 2020-01-31 21:25 | RADIOLOGY REPORT (SQ) ---
EXAM: Ultrasound retroperitoneum limited CLINICAL INDICATION: History of urinary tract infection. COMPARISON: November 08, 2019 TECHNIQUE: Silver scale sonography of the kidneys. FINDINGS: RIGHT KIDNEY: The right kidney measures 15.4 x 5.6 x 5.9 cm. No shadowing calculi is present. There is moderate right hydronephrosis. LEFT KIDNEY: The left kidney measures 12.7 x 5.7 x 4.2 cm. No shadowing calculi or hydronephrosis is present. OTHER: Urinary bladder is not visualized on this exam. IMPRESSION: Moderate right hydronephrosis. No definite nephrolithiasis is identified. Consider CT for further evaluation if clinically indicated.
[2020-01-31] MEDS ORDERED: NALBUPHINE HCL INJ 10 MG/1 ML AMPULE ONE (21:38)
[2020-01-31] MEDS ORDERED: ACETAMINOPHEN WITH CODEINE #3 TABLET PO PRN (21:46)
[2020-01-31] MEDS ORDERED: NALBUPHINE HCL INJ 10 MG/1 ML AMPULE INJ ONE (21:46)
--- NOTE | 2020-01-31 22:02 | Non Stress Test Report ---
Non Stress Test Datetime Report Generated by CPN: 01/31/2020 22:01 DEMOGRAPHIC EGA NST: 34.4 INDICATION Indication for Study (NST) Other: LC- back pain MONITORING Monitor Explained: Monitor Explained; Test Explained; Patient Verbalized Understanding Time on Monitor: 01/31/2020 19:30 Time off Monitor: 01/31/2020 21:40 NST Duration: 130 NST INTERVENTIONS NST Interventions: IV Fluids; Reposition Patient Physician Notified NST: Dr. Lerma BABY A: [id number] BABY A Movement : Present Contraction Frequency : irregular FHR Baseline : 145 Accelerations : 15X15 Decelerations : None Variability : Moderate 6-25bpm NST Review: Meets Criteria for Reactive NST NST Review and Verified By : Flako Tinajero RN NST Results: Reactive NST REPORT Report Trigger: Send Report
[2020-02-01] MEDS ORDERED: ACETAMINOPHEN WITH CODEINE #3 TABLET ONE ×2 (02:00→08:57)
[2020-02-01] MEDS ORDERED: ACETAMINOPHEN WITH CODEINE #3 TABLET PO PRN (02:02)
--- NOTE | 2020-02-01 02:07 | Admission Physical ---
Datetime Report Generated by CPN: 02/01/2020 02:07 CURRENT ADMISSION Chief Complaint: Other Chief Complaint Other: suspected pyelo, failed outpatient treatment Indication for Induction: Not Applicable Admit Impression : , Intrauterine Admit Plan: Admit to Unit; Observation/Evaluation ALLERGIES Medication Allergies: No Medication Allergies: No Known Allergies (01/31/2020) Latex: No Latex Allergies OBSTETRICAL HISTORY EDC: 03/09/2020 00:00 : 5 Para: 3 Term: 3 : 0 SAB: 0 IAB: 0 Ectopic: 0 Livin Cesareans: 0 VBACs: 0 Multiple Births: 0 Gestational Diabetes: No Rh Sensitization: No Incompetent Cervix: No BERTO: No Infertility: No ART Treatment: No Uterine Anomaly: No IUGR: No Hx Previous C/S: No Macrosomia: No Hx Loss/Stillborn: No PIH: No Hx : No Placenta Previa/Abruption: No Depression/PP Depression: Yes PTL/PROM: No Post Hemorrhage: No Current Procedures: Ultrasound Obstetrical History Comments: g1: 2008 37 wks 4lbs 10 oz male vaginal, g2: 2011, 38 wks, 6lbs 1 oz male vaginal g3: 2014, 39.3, 7lbs 4 oz, male, vaginal g4: current SEE RECORDS Alcohol: No Marijuana : No Cocaine: No Other Illicit Drugs: No Cigarettes: Never Smoker. 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 Heart Disease: No Hosp/Surgery: Yes Autoimmune Disorder: No Anesthetic Complications: No Kidney Disease: No Abnormal Pap Smear: No Neuro/Epilepsy: No Psychiatric Disorders: No Other Medical Diseases: No Hepatitis/Liver Disease: No Significant Family History: No Varicosities/Phlebitis: No Trauma/Violence : No Thyroid Dysfunction: No Medical History Comments: kidney stones, asthma, PPD, pre-E (Annotations: Data stored by [facility] on behalf of user) INFECTIOUS HISTORY Gonorrhea: No Genital Herpes: No Chlamydia: Yes Tuberculosis: No Syphilis: No Hepatitis: No HIV/AIDS Exposure: No Rash or Viral Illness: No HPV: No Infectious History Comments: chlamydia test to cure aug 2019 PHYSICAL EXAM General: Normal HEENT: Normal Neurologic: Normal Thyroid: Deferred Heart: Normal Lungs: Normal Breast: Deferred Back: Normal Abdomen: Normal Genitourinary Exam: Normal Extremities: Normal DTRs: Normal Pelvic Type: Adequate Vital Signs: Reviewed MEMBRANES Membranes: Intact FETUS A EGA: 34.4 Monitoring: External US FHR- Baseline: 150 Variability: Moderate 6-25bpm Accelerations: 15X15 Decelerations: None FHR Category: Category I Presentation: Vertex Admit Comment: 34yo at 34+4ega on admission. She has been treated as an outpatient for UTI but now presents with right flank pain. Urine with no blood and not c/w stone. US with right hydronephrosis. She does have a history of renal stones. Requiring pain meds. Rocephin 1 gram BID IV ordered. urine culture ordered. Gestational thrombocytopenia dx in 11/2019 still present. Admit for abx and pain meds. PLANS FOR LABOR AND DELIVERY Labor and Delivery: None Pain Management: Natural Feeding Preference: Breast Benefit of Breast Feed Discussed: Yes Circumcision: N/A INFORMED CONSENT Informed Consent Obtained: Risks, Benefits and Alternatives Discussed Signature: with User ID: [email or web address]
[2020-02-01] MEDS: ACETAMINOPHEN WITH CODEINE #3 TABLET PO PRN ×2 (02:11→09:03)
[2020-02-01] MEDS ORDERED: POTASSIUM CHLORIDE 10 MEQ TABLET.ER PO ONE (03:27)
--- NOTE | 2020-02-01 09:22 | Non Stress Test Report ---
Non Stress Test Datetime Report Generated by CPN: 02/01/2020 09:22 DEMOGRAPHIC EGA NST: 34.5 INDICATION Indication for Study (NST) Other: back pain; obs pt; ordered q shift MONITORING Monitor Explained: Monitor Explained; Test Explained; Patient Verbalized Understanding Time on Monitor: 02/01/2020 09:00 Time off Monitor: 02/01/2020 09:21 NST Duration: 21 NST INTERVENTIONS NST Interventions: PO Hydration; Reposition Patient Physician Notified NST: K Oliveira CNM BABY A Movement : Present Contraction Frequency : irritability FHR Baseline : 125 Accelerations : 15X15 Decelerations : None Variability : Moderate 6-25bpm NST Review: Meets Criteria for Reactive NST NST Review and Verified By : Olesya Camp RNC NST Results: Reactive NST REPORT Report Trigger: Send Report
[2020-02-01] MEDS ORDERED: CEFTRIAXONE 1 GM/D5W RTU 1 GM/50 ML RTUPB IV SCH (10:00)
[2020-02-01] MEDS ORDERED: CEFTRIAXONE INJ 1000 MG VIAL ONE (10:01)
--- NOTE | 2020-02-01 12:44 | PDOC DISCHARGE SUMMARY ---
Impression - Admit/DC Date/PCP Admission Date/Primary Care Provider: 01/31/20 21:42 TAE JON MD Discharge Date: 02/01/20 - Discharge Diagnosis (1) Hydronephrosis determined by ultrasound Is this a current diagnosis for this admission?: Yes (2) Gestational thrombocytopenia Is this a current diagnosis for this admission?: Yes (3) Pyelonephritis affecting Is this a current diagnosis for this admission?: Yes - Additional Information Resuscitation Status: Full Code Discharge Diet: Regular Discharge Activity: Balance Activity w/Rest Referrals: TAE JON MD [Primary Care Provider] - Prescriptions: Acetaminophen with Codeine [Tylenol #3 Tablet] 1 each PO Q4HP PRN #30 tablet PRN Reason: For Pain Scale 3-5 Cephalexin Monohydrate [Keflex 250 mg Capsule] 250 mg PO DAILY #30 capsule Cephalexin Monohydrate [Keflex 500 mg Capsule] 500 mg PO BID 5 Days #20 capsule Home Medications: Vit,Calc76/Iron/Folic [Prenatabs Rx Tablet] 1 each PO DAILY 11/08/19 Acetaminophen with Codeine [Tylenol #3 Tablet] 1 each PO Q4HP PRN #30 tablet 02/01/20 Cephalexin Monohydrate [Keflex 250 mg Capsule] 250 mg PO DAILY #30 capsule 02/01/20 Cephalexin Monohydrate [Keflex 500 mg Capsule] 500 mg PO BID 5 Days #20 capsule 02/01/20 History of Present Illiness History of Present Illness: BAN SEGUNDO is a 34 year old female 34.4 wks today, PNC up to date at [facility] She was admitted for severe flank pain, had sono, no stone, . Has recieved IV Rocephin x 2 doses, and is feeling better today. NST reactive today. Has appt at [facility] 02/15/20 at 2:30. Physical Exam - Physical Exam Vital Signs: Intake & Output 01/31/20 02/01/20 02/02/20 06:59 06:59 06:59 Weight 80.9 kg - Obstetrical Exam External Genitalia: not examined Results Laboratory Results: WBC 8.9 10^3/uL (4.0-10.5) 01/31/20 19:54 RBC 3.75 10^6/uL (3.72-5.28) 01/31/20 19:54 Hgb 11.4 g/dL (12.0-15.5) L 01/31/20 19:54 Hct 33.8 % (36.0-47.0) L 01/31/20 19:54 MCV 90 fl (80-97) 01/31/20 19:54 MCH 30.4 pg (27.0-33.4) 01/31/20 19:54 MCHC 33.8 g/dL (32.0-36.0) 01/31/20 19:54 RDW 13.9 % (11.5-14.0) 01/31/20 19:54 Plt Count 103 10^3/uL (150-450) L 01/31/20 19:54 Lymph % (Auto) 13.2 % (13-45) 01/31/20 19:54 Hardy % (Auto) 7.7 % (3-13) 01/31/20 19:54 Eos % (Auto) 0.5 % (0-6) 01/31/20 19:54 Baso % (Auto) 0.1 % (0-2) 01/31/20 19:54 Absolute Neuts (auto) 7.0 10^3/uL (1.7-8.2) 01/31/20 19:54 Absolute Lymphs (auto) 1.2 10^3/uL (0.5-4.7) 01/31/20 19:54 Absolute Monos (auto) 0.7 10^3/uL (0.1-1.4) 01/31/20 19:54 Absolute Eos (auto) 0.0 10^3/uL (0.0-0.6) 01/31/20 19:54 Absolute Basos (auto) 0.0 10^3/uL (0.0-0.2) 01/31/20 19:54 Seg Neutrophils % 78.5 % (42-78) H 01/31/20 19:54 Sodium 135.6 mmol/L (137-145) L 01/31/20 19:54 Potassium 3.4 mmol/L (3.6-5.0) L 01/31/20 19:54 Chloride 106 mmol/L (98-107) 01/31/20 19:54 Carbon Dioxide 22 mmol/L (22-30) 01/31/20 19:54 Anion Gap 8 (5-19) 01/31/20 19:54 BUN 11 mg/dL (7-20) 01/31/20 19:54 Creatinine 0.80 mg/dL (0.52-1.25) 01/31/20 19:54 Est GFR ( Amer) > 60 (>60) 01/31/20 19:54 Est GFR (MDRD) Non-Af > 60 (>60) 01/31/20 19:54 Glucose 94 mg/dL (75-110) 01/31/20 19:54 Calcium 8.9 mg/dL (8.4-10.2) 01/31/20 19:54 Total Bilirubin 0.4 mg/dL (0.2-1.3) 01/31/20 19:54 Direct Bilirubin 0.0 mg/dL (0.0-0.4) 01/31/20 19:54 Neonat Total Bilirubin Not Reportable 01/31/20 19:54 Neonat Direct Bilirubin Not Reportable 01/31/20 19:54 Neonat Indirect Bili Not Reportable 01/31/20 19:54 AST 29 U/L (14-36) 01/31/20 19:54 ALT 20 U/L (<35) 01/31/20 19:54 Alkaline Phosphatase 100 U/L (38-126) 01/31/20 19:54 Total Protein 6.5 g/dL (6.3-8.2) 01/31/20 19:54 Albumin 3.4 g/dL (3.5-5.0) L 01/31/20 19:54 Amylase 55 U/L (30-110) 01/31/20 19:54 Lipase 150.1 U/L (23-300) 01/31/20 19:54 Urine Color YELLOW 01/31/20 19:20 Urine Appearance SLIGHTLY-CLOUDY 01/31/20 19:20 Urine pH 5.0 (5.0-9.0) 01/31/20 19:20 Ur Specific [place] 1.023 01/31/20 19:20 Urine Protein NEGATIVE mg/dL (NEGATIVE) 01/31/20 19:20 Urine Glucose (UA) NEGATIVE mg/dL (NEGATIVE) 01/31/20 19:20 Urine Ketones 80 mg/dL (NEGATIVE) H 01/31/20 19:20 Urine Blood NEGATIVE (NEGATIVE) 01/31/20 19:20 Urine Nitrite NEGATIVE (NEGATIVE) 01/31/20 19:20 Urine Bilirubin NEGATIVE (NEGATIVE) 01/31/20 19:20 Urine Urobilinogen NEGATIVE mg/dL (<2.0) 01/31/20 19:20 Ur Leukocyte Esterase NEGATIVE (NEGATIVE) 01/31/20 19:20 Urine WBC (Auto) 3 /HPF 01/31/20 19:20 Urine RBC (Auto) 6 /HPF 01/31/20 19:20 Squamous Epi Cells Auto 1 /HPF 01/31/20 19:20 Calcium Oxalate Cr Auto MANY /HPF 01/31/20 19:20 Urine Mucus (Auto) OCC /LPF 01/31/20 19:20 Urine Ascorbic Acid 40 (NEGATIVE) H 01/31/20 19:20 Urine Opiates Screen NEGATIVE 01/31/20 19:20 Urine Methadone Screen NEGATIVE 01/31/20 19:20 Ur Barbiturates Screen NEGATIVE 01/31/20 19:20 Ur Phencyclidine Scrn NEGATIVE 01/31/20 19:20 Ur Amphetamines Screen NEGATIVE 01/31/20 19:20 U Benzodiazepines Scrn NEGATIVE 01/31/20 19:20 Urine Cocaine Screen NEGATIVE 01/31/20 19:20 U Marijuana (THC) Screen NEGATIVE 01/31/20 19:20 Impressions: Renal Ultrasound 01/31/20 19:26 IMPRESSION: Moderate right hydronephrosis. No definite nephrolithiasis is identified. Consider CT for further evaluation if clinically indicated. Plan Plan of Treatment: has appt for GBS culture and growth sono on 02/15/20, she will take Keflex twice a day for 5 days and then daily until delivery. T#3 for pain as needed. Stroke Is this a Stroke Patient?: No Acute Heart Failure - Is this a Heart Failure Patient?: No Documentation of LVEF assessment?: No, Document reason LVEF - Reason: not appropriate Anticoagulant Therapy: N/A Anticoagulant Therapy Reason - Other: Discharged on Evidence-Based Beta Blockers: No, document contraindications
== END 2020-02-01 11:26 | disposition home or self-care (01) ==
LOC: LC 19:08 → INTOOBSV 21:42 → LR 21:42
PROVIDERS: ADMIT Student in an Organized Health Care Education/Training Program; ATTEND Student in an Organized Health Care Education/Training Program
DX: O23.03 Infections of kidney in pregnancy, third trimester (principal); O99.89 Other specified diseases and conditions complicating pregnancy, childbirth and the puerperium; N13.30 Unspecified hydronephrosis; O99.113 Other diseases of the blood and blood-forming organs and certain disorders involving the immune mechanism complicating pregnancy, third trimester; D69.6 Thrombocytopenia, unspecified; Z87.442 Personal history of urinary calculi; Z3A.34 34 weeks gestation of pregnancy; Z86.19 Personal history of other infectious and parasitic diseases
CPT/HCPCS: 36415; 87086; 82150; 83690; 85025; 80053; 81001; 80307; 76775; 59025; J2300; J0696 ×3

== ENCOUNTER 2020-02-27 08:36 | Inpatient (IN) | payer MEDICAID ==
[2020-02-27 09:18] LABS: APPEARANCE,URINE SLIGHTLY-CLOUDY; BILIRUBIN,URINE NEGATIVE (NEGATIVE); COLOR,URINE AMBER; GLUCOSE, URINE NEGATIVE (NEGATIVE); KETONES,URINE 20 mg/dL (NEGATIVE); LEUKOCYTE ESTERASE,URINE SMALL (NEGATIVE); NITRITE,URINE NEGATIVE (NEGATIVE); PROTEIN,URINE 30 mg/dL (NEGATIVE)
[2020-02-27 09:43] LABS: URINE AMPHETAMINES SCREEN NEGATIVE; URINE BARBITURATES SCREEN NEGATIVE; URINE BENZODIAZEPINES SCREEN NEGATIVE; URINE COCAINE SCREEN NEGATIVE; URINE MARIJUANA (THC) SCREEN NEGATIVE; URINE METHADONE SCREEN NEGATIVE; URINE PHENCYCLIDINE SCREEN NEGATIVE
[2020-02-27] MEDS ORDERED: MISOPROSTOL 0.2 MG TABLET ONE (10:13)
[2020-02-27] MEDS ORDERED: OXYTOCIN 10 UNIT/ML VIAL ONE (10:13)
[2020-02-27] MEDS ORDERED: OXYTOCIN/0.9 % SODIUM CHLORIDE 30 UNIT/500 ML RTUINJ ONE (10:14)
[2020-02-27] MEDS ORDERED: LIDOCAINE 1% INJ-PF (10 MG/ML) 30 ML SDV ONE (10:14)
[2020-02-27 10:55] LABS: ABSOLUTE LYMPHOCYTES (AUTO) 1.8 10^3/uL (0.5-4.7); ABSOLUTE MONOCYTES (AUTO) 0.5 10^3/uL (0.1-1.4); ABSOLUTE NEUT (AUTO) 5.4 10^3/uL (1.7-8.2); BASOPHILS % (AUTO) 0.4 % (0-2); EOSINOPHILS % (AUTO) 0.6 % (0-6); HEMATOCRIT 33.3 % (36.0-47.0); HEMOGLOBIN 11.5 g/dL (12.0-15.5); LYMPHOCYTES % (AUTO) 22.8 % (13-45); MEAN CORPUSCULAR HEMOGLOBIN 30.1 pg (27.0-33.4); MEAN CORPUSCULAR HGB CONC 34.4 g/dL (32.0-36.0); MEAN CORPUSCULAR VOLUME 87 fl (80-97); MONOCYTES % (AUTO) 6.9 % (3-13); PLATELET COUNT 118 10^3/uL (150-450); RED BLOOD COUNT 3.81 10^6/uL (3.72-5.28); RED CELL DISTRIBUTION WIDTH 13.5 % (11.5-14.0); SEGMENTED NEUTROPHILS % (AUTO) 69.3 % (42-78); TOTAL CELLS COUNTED % (AUTO) 100 %; WHITE BLOOD COUNT 7.8 10^3/uL (4.0-10.5)
[2020-02-27] MEDS: RINGERS SOLUTION,LACTATED 1,000 ML IV PRN ×2 (11:11→13:36)
[2020-02-27] MEDS ORDERED: EPHEDRINE SULFATE INJ 50 MG/1 ML AMPULE ONE (11:52)
[2020-02-27] MEDS ORDERED: FENTANYL/BUPIVACAINE/NS/PF 300 MCG/150 ML RTUINJ EPI ONE (11:52)
[2020-02-27] MEDS ORDERED: ROPIVACAINE HCL 0.2% INJ/PF (2 MG/ML) 20 ML SDV ONE (11:53)
[2020-02-27] MEDS ORDERED: OXYTOCIN/0.9 % SODIUM CHLORIDE 30 UNIT/500 ML RTUINJ IV PRN ×2 (12:38→15:57)
--- NOTE | 2020-02-27 12:49 | Admission Physical ---
Datetime Report Generated by CPN: 02/27/2020 12:48 CURRENT ADMISSION Chief Complaint: Uterine Contractions Chief Complaint Other: suspected pyelo, failed outpatient treatment Indication for Induction: Not Applicable Admit Impression : Term, Intrauterine Admit Plan: Admit to Unit; Initiate Labor Protocol ALLERGIES Medication Allergies: No Medication Allergies: No Known Allergies (02/27/2020) Latex: No Latex Allergies OBSTETRICAL HISTORY EDC: 03/10/2020 00:00 : 5 Para: 3 Term: 3 : 0 SAB: 0 IAB: 0 Ectopic: 0 Livin Cesareans: 0 VBACs: 0 Multiple Births: 0 Gestational Diabetes: No Rh Sensitization: No Incompetent Cervix: No BERTO: No Infertility: No ART Treatment: No Uterine Anomaly: No IUGR: No Hx Previous C/S: No Macrosomia: No Hx Loss/Stillborn: No PIH: No Hx : No Placenta Previa/Abruption: No Depression/PP Depression: Yes PTL/PROM: No Post Hemorrhage: No Current Procedures: Ultrasound Obstetrical History Comments: g1: 2008 37 wks 4lbs 10 oz male vaginal, g2: 2011, 38 wks, 6lbs 1 oz male vaginal g3: 2014, 39.3, 7lbs 4 oz, male, vaginal g4: current - +chlam in july; negative in january 2020 SEE RECORDS Alcohol: No Marijuana : No Cocaine: No Other Illicit Drugs: No Cigarettes: Never Smoker. [id number] MEDICAL HISTORY Diabetes: No Blood Transfusion: No Pulmonary Disease (Asthma, TB): Yes Breast Disease: No Hypertension: No Terminologist Surgery: No Heart Disease: No Hosp/Surgery: Yes Autoimmune Disorder: No Anesthetic Complications: No Kidney Disease: No Abnormal Pap Smear: No Neuro/Epilepsy: No Psychiatric Disorders: No Other Medical Diseases: No Hepatitis/Liver Disease: No Significant Family History: No Varicosities/Phlebitis: No Trauma/Violence : No Thyroid Dysfunction: No Medical History Comments: kidney stones, asthma, PPD, pre-E (Annotations: Data stored by [facility] on behalf of user) INFECTIOUS HISTORY Gonorrhea: No Genital Herpes: No Chlamydia: Yes Tuberculosis: No Syphilis: No Hepatitis: No HIV/AIDS Exposure: No Rash or Viral Illness: No HPV: No Infectious History Comments: chlamydia test to cure aug 2019 PHYSICAL EXAM General: Normal HEENT: Normal Neurologic: Normal Thyroid: Normal Heart: Normal Lungs: Normal Breast: Deferred Back: Normal Abdomen: Normal Genitourinary Exam: Normal Extremities: Normal DTRs: Normal Pelvic Type: Adequate Vital Signs: Reviewed MEMBRANES Membranes: Intact FETUS A EGA: 38.2 Monitoring: External US FHR- Baseline: 150 Variability: Moderate 6-25bpm Accelerations: 15X15 Decelerations: None FHR Category: Category I Presentation: Vertex Admit Comment: 34yo at 34+4ega on admission. She has been treated as an outpatient for UTI but now presents with right flank pain. Urine with no blood and not c/w stone. US with right hydronephrosis. She does have a history of renal stones. Requiring pain meds. Rocephin 1 gram BID IV ordered. urine culture ordered. Gestational thrombocytopenia dx in 11/2019 still present. Admit for abx and pain meds. PLANS FOR LABOR AND DELIVERY Labor and Delivery: None Pain Management: Natural Feeding Preference: Breast Benefit of Breast Feed Discussed: Yes Circumcision: N/A INFORMED CONSENT Informed Consent Obtained: Risks, Benefits and Alternatives Discussed Signature: with User ID: [email or web address]
--- NOTE | 2020-02-27 14:04 | Warning Signs in Babies ---
VOD Warning Signs Datetime Report Generated by [facility]: 02/27/2020 14:04 VOD#608 -Warning Signs in Babies: Viewed with Parent(s)/Family (02/27/2020 14:03:David Beltran RN)
[2020-02-27] MEDS ORDERED: DIBUCAINE 1% OINTMENT 28 GM TP PRN (15:57)
[2020-02-27] MEDS ORDERED: NA PHOS,M-B/NA PHOS,DI-BA (ADULT) 133 ML ENEMA PR PRN (15:57)
[2020-02-27] MEDS ORDERED: PROMETHAZINE HCL 25 MG SUPP.RECT PR PRN (15:57)
[2020-02-27] MEDS ORDERED: PSEUDOEPHEDRINE HCL 30 MG TABLET PO PRN (15:57)
[2020-02-27] MEDS ORDERED: ACETAMINOPHEN WITH CODEINE #3 TABLET PO PRN (15:57)
[2020-02-27] MEDS ORDERED: DIPH/PERTUSS(ACELL)/TETANUS VAC/PF 0.5 ML SYR (>=10YO) IM PRN (15:57)
[2020-02-27] MEDS ORDERED: ACETAMINOPHEN 650 MG SUPP.RECT PR PRN (15:57)
[2020-02-27] MEDS ORDERED: DIPHENHYDRAMINE HCL 25 MG CAPSULE PO PRN (15:57)
[2020-02-27] MEDS ORDERED: PROMETHAZINE HCL INJ 25 MG/1 ML VIAL IV PRN (15:57)
[2020-02-27] MEDS ORDERED: ZOLPIDEM TARTRATE 5 MG TABLET PO PRN (15:57)
[2020-02-27] MEDS ORDERED: MAGNESIUM HYDROXIDE SUSP 30 ML UDCUP PO PRN (15:57)
[2020-02-27] MEDS ORDERED: MEASLES,MUMPS&RUBELLA VACC/PF 0.5 ML VIAL SUBCUT PRN (15:57)
[2020-02-27] MEDS ORDERED: PROMETHAZINE HCL 25 MG TABLET PO PRN (15:57)
[2020-02-27] MEDS ORDERED: BENZOCAINE/MENTHOL AEROSOL SPRAY 56 ML TOP PRN (15:57)
[2020-02-27] MEDS ORDERED: GLYCERIN/WITCH HAZEL LEAF 1 EACH MED..WIPE TP PRN (15:57)
[2020-02-27] MEDS ORDERED: DOCUSATE SODIUM 100 MG CAPSULE ONE (17:36)
[2020-02-27] MEDS ORDERED: FERROUS SULFATE 325 MG TABLET PO ONE (17:37)
[2020-02-27] MEDS: DOCUSATE SODIUM 100 MG CAPSULE PO SCH (17:39)
[2020-02-27] MEDS: FERROUS SULFATE 325 MG TABLET PO SCH (17:39)
--- NOTE | 2020-02-27 18:55 | Delivery Summary ---
Del Sum A-C Datetime Report Generated by CPN: 02/27/2020 18:55 DELIVERY PERSONNEL DELIVERY PERSONNEL: [id number] Delivery Doctor:: Hector Azul MD Labor and Delivery Nurse:: David Beltran RNfood processing chemist Nurse:: Sandra Nichols RN Nursery Nurse:: Kindra De Jesus RN Rail Equipment Operator/PRODUCTION OPERATIONS MANAGER: Coretta Ross, ST MATERNAL INFORMATION Delivery Anesthesia: Epidural Medications After Delivery: Pitocin 30 Units in 500ml NS/D5W Delivery QBL: 350 Maternal Complications: None LABOR SUMMARY EDC: 03/10/2020 00:00 No. Babies in Womb: 1 Attempted: No Labor Anesthesia: Epidural LABOR INFORMATION Reason for Induction: Not Applicable Onset of Labor: 02/27/2020 13:22 Complete Dilatation: 02/27/2020 15:40 Oxytocin: Augmentation Group B Beta Strep: Negative Antibiotics # of Doses: 0 Steroids Given: None MEMBRANES Membranes Rupture Method: Artificial Rupture of Membranes: 02/27/2020 13:22 Length of Rupture (hr): 2.52 Amniotic Fluid Color: Moderate Meconium Amniotic Fluid Amount: Small Amniotic Fluid Odor: Normal STAGES OF LABOR Stage 1 hr: 2 Stage 1 min: 18 Stage 2 hr: 0 Stage 2 min: 13 Stage 3 hr: 0 Stage 3 min: 2 Total Time in Labor hr: 2 Total Time in Labor min: 33 VAGINAL DELIVERY Episiotomy: None Laceration #1: None Laceration Extension #1: N/A Laceration Repair: Not Applicable Sponge Count Correct: N/A Sharps Count Correct: Yes CSECTION DELIVERY Primary Indication: N/A Secondary Indication: N/A CSection Incidence: N/A Labor: N/A Elective: N/A CSection Incision: N/A BABY A INFORMATION Infant Delivery Date/Time: 02/27/2020 15:53 Method of Delivery: Vaginal Nurse Controlled Delivery: No Born in Route : No : N/A Forceps: N/A Vacuum Extraction: N/A Shoulder Dystocia : No PRESENTATION/POSITION BABY A Presentation: Cephalic Cephalic Presentation: Vertex Vertex Position: Left Occipital Anterior Breech Presentation: N/A PLACENTA INFORMATION BABY A Placenta Delivery Time : 02/27/2020 15:55 Placenta Method of Delivery: Spontaneous Placenta Status: Delivered SCORES BABY A Heart Rate 1 min: >100 bpm Resp Effort 1 min: Good Cry Reflex Irritability 1 min: Cough or Sneeze or Pulls Away Muscle Tone 1 min: Active Motion Color 1 min: Blue/Pale Resuscitation Effort 1 min: Tactile Stimulation SCORE 1 MIN: 8 Heart Rate 5 min: >100 bpm Resp Effort 5 min: Good Cry Reflex Irritability 5 min: Cough or Sneeze or Pulls Away Muscle Tone 5 min: Active Motion Color 5 min: Body Coulter, Extremities Blue Resuscitation Effort 5 min: N/A SCORE 5 MIN: 9 INFANT INFORMATION BABY A Gestational Age at Delivery: 38.2 Gestational Status: Early Term- 37- 38.6 Weeks Outcome : Liveborn Condition : Stable Sex: Female IDENTIFICATION BABY A Verification Date/Time: 02/27/2020 16:26 ID Band Number: [id number] Mother's Name Verified: Yes Infant RN Verifying Infant: TMartin,RN and SCameron,RN WEIGHT/LENGTH BABY A Birthweight (gm): 2905 Infant Weight (lb): 6 Infant Weight (oz): 6 Length (in): 18.50 Infant Length (cm): 46.99 CORD INFORMATION BABY A No. Cord Vessels: 3 Nuchal Cord : N/A Cord Blood Taken: Yes-For Eval (Mom's Blood Type - or O+) Suction: None ASSESSMENT BABY A Complications: None Physical Findings at Delivery: Within Normal Limits Infant Respirations: Appears Normal Skin to Skin: Yes Skin to Skin Time (min): 60 Highballer/ALS Called : No Infant Care By: oMlly De Jesus RN Transferred To: Remains with Mother BABY B INFORMATION : N/A SIGNATURES Signature: with User ID: [email or web address]
[2020-02-27] MEDS: IBUPROFEN 800 MG TABLET PO SCH (21:28)
[2020-02-27] MEDS: FAMOTIDINE 20 MG TABLET PO SCH (21:28)
[2020-02-28] MEDS: IBUPROFEN 800 MG TABLET PO SCH ×3 (05:56→21:45)
[2020-02-28 06:32] LABS: HEMATOCRIT 31.1 % (36.0-47.0); HEMOGLOBIN 10.8 g/dL (12.0-15.5); MEAN CORPUSCULAR HEMOGLOBIN 30.6 pg (27.0-33.4); MEAN CORPUSCULAR HGB CONC 34.7 g/dL (32.0-36.0); MEAN CORPUSCULAR VOLUME 88 fl (80-97); PLATELET COUNT 111 10^3/uL (150-450); RED BLOOD COUNT 3.53 10^6/uL (3.72-5.28); WHITE BLOOD COUNT 8.9 10^3/uL (4.0-10.5)
[2020-02-28] MEDS: SENNOSIDES/DOCUSATE 8.6-50 MG 1 EACH TABLET PO SCH (10:44)
[2020-02-28] MEDS: FERROUS SULFATE 325 MG TABLET PO SCH ×2 (10:44→18:12)
[2020-02-28] MEDS: PRENATAL VITAMIN W DHA CAPSULE PO SCH (10:44)
[2020-02-28] MEDS: FAMOTIDINE 20 MG TABLET PO SCH ×2 (10:44→21:45)
[2020-02-28] MEDS: DOCUSATE SODIUM 100 MG CAPSULE PO SCH ×2 (10:44→18:12)
--- NOTE | 2020-02-28 12:01 | PDOC PROGRESS REPORT ---
Subjective-OB Progress Note for:: 02/28/20 Subjective: reports bleeding slowing, pain controlled with current meds. denies needs Physical Exam (OB) Vital Signs: Temp Pulse Resp BP Pulse Ox 97.7 F 50 L 14 116/77 98 02/28/20 08:25 02/28/20 08:25 02/28/20 08:25 02/28/20 08:25 02/28/20 08:25 Intake & Output 02/27/20 02/28/20 02/29/20 06:59 06:59 06:59 Intake Total 802 500 Output Total 350 Balance 452 500 Weight 81.329 kg - Abdomen Description: Soft Hernia Present: No Fundal Description: Firm, Midline Fundal Height: u/u - u/2 - Abdominal Distension: No distension Tenderness: Nontender - Extremities Lower extremities: Yaw's sign - neg Calf: Normal, Nontender Objective-Diagnostic Laboratory: 02/28/20 06:07 02/27/20 02/28/20 02/28/20 10:31 06:07 06:07 WBC 8.9 RBC 3.53 L Hgb 10.8 L Hct 31.1 L MCV 88 MCH 30.6 MCHC 34.7 RDW 14.0 Plt Count 111 L Blood Type O NEGATIVE O NEGATIVE Antibody Screen POSITIVE Assessment and Plan(PN) - Time Spent with Patient Time with patient: Less than 15 minutes - Disposition Anticipated Discharge Disposition: Home, Self Care Anticipated Discharge Timeframe: within 24 hours
[2020-02-29] MEDS: IBUPROFEN 800 MG TABLET PO SCH (05:14)
[2020-02-29] MEDS: FERROUS SULFATE 325 MG TABLET PO SCH (09:26)
[2020-02-29] MEDS: PRENATAL VITAMIN W DHA CAPSULE PO SCH (09:26)
[2020-02-29] MEDS: FAMOTIDINE 20 MG TABLET PO SCH (09:26)
[2020-02-29] MEDS: SENNOSIDES/DOCUSATE 8.6-50 MG 1 EACH TABLET PO SCH (09:26)
[2020-02-29] MEDS: DOCUSATE SODIUM 100 MG CAPSULE PO SCH (09:26)
--- NOTE | 2020-02-29 13:32 | PDOC DISCHARGE SUMMARY ---
Impression - Admit/DC Date/PCP Admission Date/Primary Care Provider: 02/27/20 09:41 TAE JON MD Discharge Date: 02/29/20 - Discharge Diagnosis (1) (spontaneous vaginal delivery) Is this a current diagnosis for this admission?: Yes (2) Normal course Is this a current diagnosis for this admission?: Yes (3) Gestational thrombocytopenia Is this a current diagnosis for this admission?: Yes (4) Hydronephrosis determined by ultrasound Is this a current diagnosis for this admission?: Yes - Additional Information Resuscitation Status: Full Code Discharge Diet: Regular Discharge Activity: Balance Activity w/Rest, Pelvic Rest Referrals: TAE JON MD [Primary Care Provider] - Prescriptions: Ibuprofen [Motrin 800 mg Tablet] 800 mg PO Q8HP PRN #60 tablet PRN Reason: Home Medications: Vit,Calc76/Iron/Folic [Prenatabs Rx Tablet] 1 each PO DAILY 11/08/19 Sertraline HCl [Zoloft 50 mg Tablet] 25 mg PO DAILY 02/27/20 Ibuprofen [Motrin 800 mg Tablet] 800 mg PO Q8HP PRN #60 tablet 02/29/20 HPI Reason(s) for Admission: Onset of Labor Procedures: NST Intrapartum Procedure(s): Spontaneous Vaginal Delivery Results Laboratory Results: WBC 8.9 10^3/uL (4.0-10.5) 02/28/20 06:07 RBC 3.53 10^6/uL (3.72-5.28) L 02/28/20 06:07 Hgb 10.8 g/dL (12.0-15.5) L 02/28/20 06:07 Hct 31.1 % (36.0-47.0) L 02/28/20 06:07 MCV 88 fl (80-97) 02/28/20 06:07 MCH 30.6 pg (27.0-33.4) 02/28/20 06:07 MCHC 34.7 g/dL (32.0-36.0) 02/28/20 06:07 RDW 14.0 % (11.5-14.0) 02/28/20 06:07 Plt Count 111 10^3/uL (150-450) L 02/28/20 06:07 Lymph % (Auto) 22.8 % (13-45) 02/27/20 10:31 [place] % (Auto) 6.9 % (3-13) 02/27/20 10:31 Eos % (Auto) 0.6 % (0-6) 02/27/20 10:31 Baso % (Auto) 0.4 % (0-2) 02/27/20 10:31 Absolute Neuts (auto) 5.4 10^3/uL (1.7-8.2) 02/27/20 10:31 Absolute Lymphs (auto) 1.8 10^3/uL (0.5-4.7) 02/27/20 10:31 Absolute Monos (auto) 0.5 10^3/uL (0.1-1.4) 02/27/20 10:31 Absolute Eos (auto) 0.0 10^3/uL (0.0-0.6) 02/27/20 10:31 Absolute Basos (auto) 0.0 10^3/uL (0.0-0.2) 02/27/20 10:31 Seg Neutrophils % 69.3 % (42-78) 02/27/20 10:31 POC Glucose 105 mg/dL (70-110) 02/27/20 10:23 Urine Color JADIEL 02/27/20 08:46 Urine Appearance SLIGHTLY-CLOUDY 02/27/20 08:46 Urine pH 6.0 (5.0-9.0) 02/27/20 08:46 Ur Specific [place] 1.020 02/27/20 08:46 Urine Protein 30 mg/dL (NEGATIVE) H 02/27/20 08:46 Urine Glucose (UA) NEGATIVE mg/dL (NEGATIVE) 02/27/20 08:46 Urine Ketones 20 mg/dL (NEGATIVE) H 02/27/20 08:46 Urine Blood NEGATIVE (NEGATIVE) 02/27/20 08:46 Urine Nitrite NEGATIVE (NEGATIVE) 02/27/20 08:46 Urine Bilirubin NEGATIVE (NEGATIVE) 02/27/20 08:46 Urine Urobilinogen 2.0 mg/dL (<2.0) H 02/27/20 08:46 Ur Leukocyte Esterase SMALL (NEGATIVE) H 02/27/20 08:46 Urine Ascorbic Acid NEGATIVE (NEGATIVE) 02/27/20 08:46 Urine Opiates Screen NEGATIVE 08/01/20 08:46 Urine Methadone Screen NEGATIVE 02/27/20 08:46 Ur Barbiturates Screen NEGATIVE 02/27/20 08:46 Ur Phencyclidine Scrn NEGATIVE 02/27/20 08:46 Ur Amphetamines Screen NEGATIVE 02/27/20 08:46 U Benzodiazepines Scrn NEGATIVE 02/27/20 08:46 Urine Cocaine Screen NEGATIVE 02/27/20 08:46 U Marijuana (THC) Screen NEGATIVE 02/27/20 08:46 RPR NONREACTIVE (NONREACTIVE) 02/27/20 10:31 Blood Type O NEGATIVE 02/28/20 06:07 Antibody Screen POSITIVE 02/27/20 10:31 Antibody Identification RHOGAM INDUCED ANTI-D 02/27/20 10:31 Screen NEGATIVE 02/28/20 06:07 Plan Plan of Treatment: f/u at [facility] Time Spent: Less than 30 Minutes
[2020-02-29 13:47] VITALS: BP 116/77
== END 2020-02-29 14:30 | disposition home or self-care (01) | DRG 806 ==
LOC: LC 08:36 → LR 09:41 → 2S 18:30
PROVIDERS: ADMIT Obstetrics & Gynecology Gynecology; ATTEND Obstetrics & Gynecology Gynecology
PROC: 10E0XZZ Delivery of Products of Conception, External Approach (ICD-10-PCS; principal; 2020-02-27)
PROC: 10907ZC Drainage of Amniotic Fluid, Therapeutic from Products of Conception, Via Natural or Artificial Opening (ICD-10-PCS; 2020-02-27)
DX: O99.89 Other specified diseases and conditions complicating pregnancy, childbirth and the puerperium (principal); O99.12 Other diseases of the blood and blood-forming organs and certain disorders involving the immune mechanism complicating childbirth; Z37.0 Single live birth; N13.30 Unspecified hydronephrosis; O26.893 Other specified pregnancy related conditions, third trimester; Z67.41 Type O blood, Rh negative; Z3A.38 38 weeks gestation of pregnancy
CPT/HCPCS: 1967; 36415; 80307; 81005; 82962; 85025; 85027; 85461; 86592; 86850; 86870; 86900; 86901; 88307; 94760; C1758; J2590; J2790; J2795; J3010; J3490